=== PATIENT | female | born 1940 | race Caucasian/White ===

== ENCOUNTER 2021-10-23 13:28 | Outpatient (CLI) | payer BC | END 2021-10-23 13:29 | disposition home or self-care (01) | LOC: BICMAMMO 13:28 | PROVIDERS: ATTEND Internal Medicine | DX: Z12.31 Encounter for screening mammogram for malignant neoplasm of breast (principal); Z85.3 Personal history of malignant neoplasm of breast; Z80.3 Family history of malignant neoplasm of breast; Z98.890 Other specified postprocedural states | CPT/HCPCS: 77063; 77067 ==

== ENCOUNTER 2024-04-19 07:57 | Outpatient (CLI) | payer BC ==
[2024-04-19 09:03] LABS: Hematocrit 34.6 % (34.9-44.5); Hemoglobin 12.2 g/dL (12.0-15.5); Mean Corpuscular HGB CONC 35.3 g/dL (32.0-36.0); Mean Corpuscular Hemoglobin 37.9 pg (27.0-33.0); Mean Corpuscular Volume 107.5 fL (81.6-98.3); Mean Platelet Volume 8.7 fL (7.4-10.4); Platelet Count 253 10x3/uL (150-450); RBC Distribution Width 14.6 % (11.5-14.5); Red Blood Cell (RBC) Count 3.22 10x6/uL (3.90-5.03); White Blood Cell (WBC) Count 2.6 10x3/uL (3.5-10.5)
[2024-04-19 09:04] LABS: MDiff Complete? YES
[2024-04-19 09:26] LABS: ALT (SGPT) 19 U/L (8-55); AST (SGOT) 29 U/L (5-34); Albumin 4.1 g/dL (3.4-4.8); Alkaline Phosphatase 81 U/L (40-110); Anion Gap 13 mmol/L (10-20); BUN (Urea Nitrogen) 12 mg/dL (9.8-20.1); Bilirubin, Direct 0.2 mg/dL (0.1-0.3); Bilirubin, Total 0.5 mg/dL (0.2-1.2); Calc. Creatinine Clearance 0 mL/min (70-130); Calcium 10.1 mg/dL (7.8-10.44); Carbon Dioxide 25 mmol/L (23-31); Chloride 105 mmol/L (98-107); Estimated GFR 65; Glucose 126 mg/dL (83-110); Potassium 4.3 mmol/L (3.5-5.1); Protein, Total 6.6 g/dL (5.8-8.1); Sodium 139 mmol/L (136-145)
[2024-04-19 09:31] LABS: Band 6 % (5-11); Eosinophils 3 % (0-10); Lymphocytes 32 % (21-51); Monocytes 3 % (0-10); Neutrophil 55 % (42-75); Reactive Lymphocytes 1 % (0-10)
[2024-04-19 09:32] LABS: Macrocytosis SLIGHT = 6-15 cells (100X) (0-5/hpf); Ovalocytes SLIGHT = 2-5 cells (100X) (0-1/hpf)
== END 2024-04-19 07:58 | disposition home or self-care (01) ==
LOC: LABBT 07:57
PROVIDERS: ATTEND Surgery
DX: Z01.818 Encounter for other preprocedural examination (principal); K80.20 Calculus of gallbladder without cholecystitis without obstruction
CPT/HCPCS: 80048; 80076; 85025; 93005; 93010

== ENCOUNTER 2024-04-26 06:48 | Day surgery (SDC) | payer BC ==
[2024-04-19 08:31] VITALS: BMI 18.3
[2024-04-26] MEDS ORDERED: PROPOFOL 20 ML ONE (08:01)
[2024-04-26] MEDS ORDERED: Fentanyl 250 MCG/5 ML VIAL ONE (08:02)
[2024-04-26] MEDS ORDERED: Rocuronium Bromide 10 MG/ML (10ML VIAL) ONE ×2 (08:04→08:05)
[2024-04-26] MEDS ORDERED: EPINEPHrine 1 MG/ML VIAL ONE (08:05)
[2024-04-26] MEDS ORDERED: Bupivacaine 0.25% HCL 30 ML VIAL ONE (08:05)
[2024-04-26] MEDS ORDERED: Indocyanine Green 25 MG/10 ML VIAL ONE (08:05)
[2024-04-26] MEDS ORDERED: Dexamethasone 4 mg/ml Vial ONE (08:06)
[2024-04-26] MEDS ORDERED: Ondansetron PF 4 MG/2 ML Vial ONE (08:06)
[2024-04-26] MEDS ORDERED: CEFAZOLIN 2 GM VIAL ONE (08:58)
[2024-04-26] MEDS ORDERED: Sodium Chloride 0.9% 100 ML ONE (08:59)
[2024-04-26] MEDS ORDERED: SUGAMMADEX SODIUM 200 MG/2 ML VIAL ONE (09:43)
[2024-04-26] MEDS ORDERED: fentaNYL 50 mcg/mL 1 mL Vial ONE ×2 (10:13→10:32)
[2024-04-26] MEDS ORDERED: HYDROcodone/Acetaminophen 5/325 mg Tablet ONE (11:48)
== END 2024-04-26 12:30 | disposition home or self-care (01) ==
LOC: SDC 06:48
PROVIDERS: ATTEND Surgery
PROC: 0FT44ZZ Resection of Gallbladder, Percutaneous Endoscopic Approach (ICD-10-PCS; principal; 2024-04-26)
DX: K80.10 Calculus of gallbladder with chronic cholecystitis without obstruction (principal); M19.90 Unspecified osteoarthritis, unspecified site; M81.0 Age-related osteoporosis without current pathological fracture; Z79.82 Long term (current) use of aspirin; Z79.899 Other long term (current) drug therapy; Z98.890 Other specified postprocedural states
CPT/HCPCS: 88304; C1889; J0171; J0665; J1100; J2405; J2704; J3010; J3490

== ENCOUNTER 2025-10-08 08:59 | Outpatient (CLI) | payer BC | END 2025-10-08 09:00 | disposition home or self-care (01) | LOC: BICRAD 08:59 | PROVIDERS: ATTEND Nurse Practitioner Family | DX: U07.1 COVID-19 (principal); R05.9 Cough, unspecified; J98.4 Other disorders of lung | CPT/HCPCS: 71046 ==